=== PATIENT | female | born 2000 | race Caucasian/White ===

== ENCOUNTER 2019-06-17 22:12 | Emergency (ER) | payer MEDICARE ==
[~2019-06-17] VITALS: Ht 157.5 cm; Wt 82.0 kg
[2019-06-18] MEDS ORDERED: SODIUM CHLORIDE 0.9% 1,000 ML IV ONE (00:08)
[2019-06-18] MEDS ORDERED: ONDANSETRON HCL 4MG/2ML INJ IV STA (00:08)
[2019-06-18] MEDS ORDERED: MORPHINE SULFATE 4 MG/ML CPJ (NOT FOR IM USE) IV STA (00:08)
[2019-06-18 00:37] LABS: BASOPHILS % 0.7 % (0.0-2.0); EOSINOPHILS % 2.4 % (0.0-5.0); HEMOGLOBIN. 12.9 g/dL (12.0-16.0); LYMPHOCYTES % 32.6 % (20.0-50.0); MEAN CORPUSCULAR HEMOGLOBIN 30.6 pg (28.0-32.0); MEAN PLATELET VOLUME 8.8 fl (7.4-10.4); MONOCYTES % 5.8 % (2.0-8.0); NEUTROPHILS % 58.5 % (40.0-76.0); PLATELET 220 x1000/uL (130-400); RED BLOOD CELL COUNT 4.22 mill/uL (4.2-5.4); RED CELL DISTRIBUTION WIDTH 13.6 % (11.6-14.6)
[2019-06-18 00:41] LABS: CHLORIDE 109 mEq/L (98-107)
[2019-06-18 04:50] VITALS: BP 99/62
== END 2019-06-18 05:10 | disposition home or self-care (01) ==
LOC: ER 22:12
DX: K80.80 Other cholelithiasis without obstruction (principal); R10.9 Unspecified abdominal pain; F17.200 Nicotine dependence, unspecified, uncomplicated; Z71.6 Tobacco abuse counseling
CPT/HCPCS: 36415; 76705; 80053; 83690; 85025; 96374; 96375; 99284; 99406; J2270; J2405; J7030; Z7610

== ENCOUNTER 2019-06-26 01:45 | Emergency (ER) | payer MEDICARE ==
[~2019-06-26] VITALS: Ht 165.1 cm; Wt 66.0 kg
[2019-06-26] MEDS ORDERED: ONDANSETRON 4MG ODT PO STA (02:10)
[2019-06-26] MEDS ORDERED: VISCOUS LIDOCAINE 2% 15 ML UDC PO ONE (02:15)
[2019-06-26] MEDS ORDERED: MAGNESIUM/ALUMINUM HYDROXIDE/SIMETHICONE 30ML UDC PO ONE (02:15)
[2019-06-26] MEDS ORDERED: KETOROLAC 30MG/ML VIAL IV ONE (02:45)
[2019-06-26 03:28] LABS: CHLORIDE 107 mEq/L (98-107)
[2019-06-26 03:37] LABS: CLARITY URINE TURBID (CLEAR); COLOR URINE YELLOW (YELLOW); KETONES URINE NEGATIVE (NEGATIVE); LEUKOCYTE ESTERASE URINE NEGATIVE (NEGATIVE); NITRITE URINE NEGATIVE (NEGATIVE); OCCULT BLOOD URINE NEGATIVE (NEGATIVE); PH URINE 7.5 (4.5-8.0); PROTEIN URINE NEGATIVE (NEGATIVE); SPECIFIC GRAVITY URINE 1.021 (1.005-1.030); UROBILINOGEN URINE 0.2 E.U./dL (0.2-1.0)
[2019-06-26 05:33] VITALS: BP 116/70
== END 2019-06-26 05:42 | disposition home or self-care (01) ==
LOC: ER 01:45
DX: R10.9 Unspecified abdominal pain (principal)
CPT/HCPCS: 36415; 74021; 80053; 81003; 81025; 83690; 96374; 99284; J1885; Q0162

== ENCOUNTER 2019-09-07 01:35 | Emergency (ER) | payer MEDICAID, MEDICARE ==
[~2019-09-07] VITALS: Ht 170.2 cm; Wt 64.0 kg
[2019-09-07] MEDS ORDERED: VISCOUS LIDOCAINE 2% 15 ML UDC PO ONE (02:00)
[2019-09-07] MEDS ORDERED: MAGNESIUM/ALUMINUM HYDROXIDE/SIMETHICONE 30ML UDC PO ONE (02:00)
[2019-09-07] MEDS ORDERED: SODIUM CHLORIDE 0.9% 1,000 ML IV ONE (02:16)
[2019-09-07] MEDS ORDERED: KETOROLAC 30MG/ML VIAL IV STA (02:16)
[2019-09-07 02:32] LABS: CHLORIDE 106 mEq/L (98-107)
[2019-09-07 02:34] LABS: BASOPHILS % 0.3 % (0.0-2.0); EOSINOPHILS % 1.8 % (0.0-5.0); HEMATOCRIT. 39.4 % (36.0-48.0); HEMOGLOBIN. 13.4 g/dL (12.0-16.0); LYMPHOCYTES % 23.2 % (20.0-50.0); MEAN CORPUSCULAR HEMOGLOBIN 30.3 pg (28.0-32.0); MEAN CORPUSCULAR VOLUME 89.2 fL (81.0-99.0); MONOCYTES % 5.5 % (2.0-8.0); NEUTROPHILS % 69.2 % (40.0-76.0); PLATELET 272 x1000/uL (130-400); RED BLOOD CELL COUNT 4.42 mill/uL (4.2-5.4); RED CELL DISTRIBUTION WIDTH 13.3 % (11.6-14.6)
[2019-09-07 02:37] LABS: PROTHROMBIN TIME 10.8 sec (9.6-11.0)
[2019-09-07 06:08] VITALS: BP 132/71
== END 2019-09-07 06:09 | disposition home or self-care (01) ==
LOC: ER 01:51
DX: K80.50 Calculus of bile duct without cholangitis or cholecystitis without obstruction (principal); K59.00 Constipation, unspecified; N83.8 Other noninflammatory disorders of ovary, fallopian tube and broad ligament; Z87.19 Personal history of other diseases of the digestive system
CPT/HCPCS: 36415; 76705; 80053; 83690; 85025; 85610; 96374; 99284; J1885; J7030

== ENCOUNTER 2019-11-23 03:55 | Emergency (ER) | payer MEDICAID, MEDICARE ==
[~2019-11-23] VITALS: Ht 170.2 cm; Wt 82.0 kg
[2019-11-23] MEDS ORDERED: ACETAMINOPHEN 325MG TABLET PO ONE (05:30)
[2019-11-23 05:39] LABS: BASOPHILS % 0.3 % (0.0-2.0); EOSINOPHILS % 1.7 % (0.0-5.0); HEMATOCRIT. 39.7 % (36.0-48.0); HEMOGLOBIN. 13.9 g/dL (12.0-16.0); LYMPHOCYTES % 25.2 % (20.0-50.0); MEAN CORPUSCULAR HEMOGLOBIN 31.4 pg (28.0-32.0); MEAN CORPUSCULAR VOLUME 89.8 fL (81.0-99.0); MEAN PLATELET VOLUME 9.1 fl (7.4-10.4); MONOCYTES % 6.5 % (2.0-8.0); NEUTROPHILS % 66.3 % (40.0-76.0); PLATELET 252 x1000/uL (130-400); RED BLOOD CELL COUNT 4.42 mill/uL (4.2-5.4); RED CELL DISTRIBUTION WIDTH 13.1 % (11.6-14.6)
[2019-11-23 05:40] LABS: CLARITY URINE CLEAR (CLEAR); COLOR URINE YELLOW (YELLOW); KETONES URINE NEGATIVE (NEGATIVE); LEUKOCYTE ESTERASE URINE NEGATIVE (NEGATIVE); NITRITE URINE NEGATIVE (NEGATIVE); OCCULT BLOOD URINE NEGATIVE (NEGATIVE); PH URINE 5.5 (4.5-8.0); PROTEIN URINE NEGATIVE (NEGATIVE); SPECIFIC GRAVITY URINE 1.027 (1.005-1.030); UROBILINOGEN URINE 0.2 E.U./dL (0.2-1.0)
[2019-11-23 05:54] LABS: CHLORIDE 107 mEq/L (98-107)
[2019-11-23] MEDS ORDERED: SODIUM CHLORIDE 0.9% 1,000 ML IV ONE (07:47)
[2019-11-23] MEDS ORDERED: KETOROLAC 30MG/ML VIAL IV STA (07:47)
[2019-11-23] MEDS ORDERED: MORPHINE SULFATE 4 MG/ML CPJ (NOT FOR IM USE) IV STA (07:47)
[2019-11-23] MEDS ORDERED: ONDANSETRON HCL 4MG/2ML INJ IV STA (07:47)
[2019-11-23 10:18] VITALS: BP 101/57
== END 2019-11-23 10:25 | disposition home or self-care (01) ==
LOC: ER 03:55
DX: R10.11 Right upper quadrant pain (principal); R11.2 Nausea with vomiting, unspecified; K80.50 Calculus of bile duct without cholangitis or cholecystitis without obstruction; Z98.890 Other specified postprocedural states
CPT/HCPCS: 36415; 76705; 80053; 81003; 81025; 83690; 85025; 96361; 96374; 96375; 99285; J1885; J2405; J7030; J2270